=== PATIENT | male | born 1990 | race Caucasian/White ===

== ENCOUNTER 2020-05-19 13:35 | Emergency (ER) | payer BC, SELFPAY ==
[~2020-05-19] VITALS: Ht 180.3 cm; Wt 144.7 kg
[2020-05-19 14:04] VITALS: BP_SYST 137
== END 2020-05-19 16:00 | disposition left against medical advice (07) ==
LOC: SED 13:35
DX: M79.18 Myalgia, other site (principal); R05 Cough; Z53.21 Procedure and treatment not carried out due to patient leaving prior to being seen by health care provider
CPT/HCPCS: 71045